=== PATIENT | male | born 1940 | race Caucasian/White ===

== ENCOUNTER 2017-06-19 06:12 | Day surgery (SDC) | payer OTHER ==
[~2017-06-19] VITALS: Ht 182.9 cm; Wt 96.1 kg
[2017-06-19] MEDS ORDERED: TRIA50 PO (06:32)
[2017-06-19] MEDS ORDERED: AMLOATOR (06:32)
[2017-06-19] MEDS ORDERED: IBUP400 PO (06:46)
== END 2017-06-19 11:55 | disposition home or self-care (01) ==
LOC: ORSCSDS 06:12
PROVIDERS: Orthopaedic Surgery
PROC: 0RNK4ZZ Release Left Shoulder Joint, Percutaneous Endoscopic Approach (ICD-10-PCS; principal; 2017-06-19 07:30)
PROC: 0LQ24ZZ Repair Left Shoulder Tendon, Percutaneous Endoscopic Approach (ICD-10-PCS; principal; 2017-06-19 07:30)
PROC: 0LS24ZZ Reposition Left Shoulder Tendon, Percutaneous Endoscopic Approach (ICD-10-PCS; principal; 2017-06-19 07:30)
DX: M75.122 Complete rotator cuff tear or rupture of left shoulder, not specified as traumatic (principal); M75.42 Impingement syndrome of left shoulder; M75.22 Bicipital tendinitis, left shoulder; I10 Essential (primary) hypertension; K21.9 Gastro-esophageal reflux disease without esophagitis; Z79.899 Other long term (current) drug therapy
CPT/HCPCS: C1713; J0171; J0690; J1100; J2250; J2405; J3010; J7120

== ENCOUNTER 2018-09-15 12:16 | Day surgery (SDC) | payer OTHER ==
[~2018-09-15] VITALS: Ht 182.9 cm; Wt 93.8 kg
[~2018-09-15 12:16] MED LIST: AMLOATOR; Amlodipine-Ben1 EACH PO; Cialis5 MG; Dyazide 37.5-21 EACH PO; IBUP400 PO; IBUP800 PO; Prilosec Otc20 MG PO; TRIA50 PO; TUMS500 MG PO
== END 2018-09-15 14:30 | disposition home or self-care (01) ==
LOC: ORSCSDS 12:16
PROVIDERS: Internal Medicine Gastroenterology
PROC: 0DB58ZX Excision of Esophagus, Via Natural or Artificial Opening Endoscopic, Diagnostic (ICD-10-PCS; principal; 2018-09-15 13:30)
DX: K21.9 Gastro-esophageal reflux disease without esophagitis (principal); K44.9 Diaphragmatic hernia without obstruction or gangrene; I10 Essential (primary) hypertension; Z79.899 Other long term (current) drug therapy
CPT/HCPCS: 88305; J2704; J7120

== ENCOUNTER 2019-11-25 07:37 | Day surgery (SDC) | payer OTHER ==
[~2019-11-25] VITALS: Ht 182.9 cm; Wt 95.5 kg
== END 2019-11-25 10:19 | disposition home or self-care (01) ==
LOC: ORSCSDS 07:37
PROVIDERS: Internal Medicine Gastroenterology
PROC: 0DBM8ZX Excision of Descending Colon, Via Natural or Artificial Opening Endoscopic, Diagnostic (ICD-10-PCS; principal; 2019-11-25 09:00)
PROC: 0DBN8ZX Excision of Sigmoid Colon, Via Natural or Artificial Opening Endoscopic, Diagnostic (ICD-10-PCS; principal; 2019-11-25 09:00)
PROC: 0DBH8ZX Excision of Cecum, Via Natural or Artificial Opening Endoscopic, Diagnostic (ICD-10-PCS; principal; 2019-11-25 09:00)
PROC: 0DBP8ZX Excision of Rectum, Via Natural or Artificial Opening Endoscopic, Diagnostic (ICD-10-PCS; principal; 2019-11-25 09:00)
PROC: 0DBC8ZX Excision of Ileocecal Valve, Via Natural or Artificial Opening Endoscopic, Diagnostic (ICD-10-PCS; principal; 2019-11-25 09:00)
PROC: 0DBK8ZX Excision of Ascending Colon, Via Natural or Artificial Opening Endoscopic, Diagnostic (ICD-10-PCS; principal; 2019-11-25 09:00)
DX: Z12.11 Encounter for screening for malignant neoplasm of colon (principal); D12.2 Benign neoplasm of ascending colon; D12.0 Benign neoplasm of cecum; D12.8 Benign neoplasm of rectum; K63.5 Polyp of colon; K57.30 Diverticulosis of large intestine without perforation or abscess without bleeding; I10 Essential (primary) hypertension; Z79.899 Other long term (current) drug therapy
CPT/HCPCS: 88305; J2405; J2704; J7120

== ENCOUNTER 2020-02-15 06:23 | Day surgery (SDC) | payer OTHER ==
[~2020-02-15] VITALS: Ht 182.9 cm; Wt 96.6 kg
[~2020-02-15 06:23] MED LIST changes: +DYAZIDE 37.5-21 EACH PO
--- NOTE | 2020-02-15 08:56 | NUR ---
02/15/20 0856 ROSY SIMON IV TO LEFT HAND DC'D IN OR
== END 2020-02-15 08:50 | disposition home or self-care (01) ==
LOC: ORSCSDS 06:23
PROVIDERS: Orthopaedic Surgery
PROC: 01N50ZZ Release Median Nerve, Open Approach (ICD-10-PCS; principal; 2020-02-15 07:30)
DX: G56.02 Carpal tunnel syndrome, left upper limb (principal); I10 Essential (primary) hypertension; K21.9 Gastro-esophageal reflux disease without esophagitis; Z79.899 Other long term (current) drug therapy
CPT/HCPCS: J0690; J1100; J1885; J2250; J2704; J3010; J7120

== ENCOUNTER 2020-10-07 10:05 | Emergency (ER) | payer OTHER ==
[~2020-10-07] VITALS: Ht 182.9 cm; Wt 95.2 kg
[2020-10-07 10:42] LABS: Source, Urine Clean Catch
[2020-10-07 10:44] LABS: BASOPHILS ABSOLUTE AUTO 0.05 K/mm3 (0.00-0.23); BASOPHILS PERCENT AUTO 1 % (0-2); EOSINOPHILS ABSOLUTE AUTO 0.04 K/mm3 (0.00-0.68); EOSINOPHILS PERCENT AUTO 0 % (0-6); Hematocrit 50.2 % (37.0-53.0); Hemoglobin 16.5 g/dL (13.5-17.5); IMMATURE GRAN ABSOLUTE AUTO 0.04 K/mm3 (0.00-0.10); IMMATURE GRAN PERCENT AUTO 0 % (0-1); LYMPHOCYTES PERCENT AUTO 13 % (21-46); MONOCYTES ABSOLUTE AUTO 0.69 K/mm3 (0.16-1.47); MONOCYTES PERCENT AUTO 6 % (4-13); Mean Corpuscular HGB 29.2 pg (26.0-34.0); Mean Corpuscular HGB Conc 32.9 g/dL (31.5-36.5); Mean Corpuscular Volume 89 fL (80-100); Mean Platelet Volume 9.1 fL (9.1-12.4); NEUTROPHILS ABSOLUTE AUTO 8.73 K/mm3 (1.96-9.15); NEUTROPHILS PERCENT AUTO 80 % (41-73); Platelet Count 193 K/mm3 (150-400); RDW Coefficient Variation 12.1 % (11.7-14.2); RDW Standard Deviation 39.4 fL (35.1-46.3); Red Blood Cell Count 5.65 M/mm3 (4.30-5.90); White Blood Cell Count 10.95 K/mm3 (4.00-11.30)
[2020-10-07 10:52] LABS: Bilirubin, Urine Neg (Neg); Blood, Urine 5+ (Neg); Glucose Qualitative, Urine Neg (Neg); Ketones, Urine Neg (Neg); Leukocyte Esterase, Urine Neg (Neg); Nitrite, Urine Neg (Neg); Protein, Urine Neg (Neg); Urobilinogen, Urine NORM (Normal)
[2020-10-07 10:57] LABS: Alanine Aminotransfer (ALT/SGP 36 U/L (12-78); Albumin/Globulin Ratio 1.1 (0.8-1.8); Alk Phos 87 U/L (50-136); Anion Gap 6 mmol/L (6-16); Aspartate Aminotrans (AST/SGOT 24 U/L (12-37); Bilirubin, Total 0.8 mg/dL (0.1-1.0); Blood Urea Nitrogen 29 mg/dL (8-24); Bun/Creatinine Ratio 24.4 (12.0-20.0); CO2, Blood 26 mmol/L (21-32); Chloride, Blood 106 mmol/L (98-108); Creatinine, Blood 1.19 mg/dL (0.60-1.20); Globulin, Blood 3.5 g/dL (2.2-4.0); Glomerular Filtration Rate >60 (60-); Glucose, Blood 154 mg/dL (70-99); Potassium, Blood 3.9 mmol/L (3.5-5.5); Sodium, Blood 138 mmol/L (136-145); Total Protein, Blood 7.5 g/dL (6.4-8.2)
[2020-10-07 11:00] LABS: Appearance, Urine Hazy (Clear); Color, Urine Yellow (P-Yellow)
[2020-10-07 11:01] LABS: Bacteria Not Seen /hpf; Squamous Epithelial Cells Few /hpf (Few); White Blood Cells, Urine Not Seen /hpf (0-5)
[2020-10-07] MEDS ORDERED: Norco 5-325 Ta1 EACH PO (11:10)
[2020-10-07] MEDS ORDERED: ONDA4ODT MM (11:10)
[2020-10-07] MEDS ORDERED: Flomax0.4 MG PO (11:10)
== END 2020-10-07 11:21 | disposition home or self-care (01) ==
LOC: ER 10:05
PROVIDERS: Emergency Medicine
DX: N13.2 Hydronephrosis with renal and ureteral calculous obstruction (principal); R10.9 Unspecified abdominal pain; Z79.899 Other long term (current) drug therapy
CPT/HCPCS: 36415; 74176; 80053; 81001; 83690; 85025; 96374; 96375; 99284-25; J1885; J2405

== ENCOUNTER 2022-01-02 14:36 | Inpatient (IN) | payer OTHER ==
[~2022-01-02] VITALS: Ht 182.9 cm; Wt 93.2 kg
[~2022-01-02 14:36] MED LIST changes: +Flomax0.4 MG PO; +Norco 5-325 Ta1 EACH PO; +ONDA4ODT MM
[2022-01-02 15:07] LABS: BASOPHILS ABSOLUTE AUTO 0.04 K/mm3 (0.00-0.23); BASOPHILS PERCENT AUTO 1 % (0-2); EOSINOPHILS ABSOLUTE AUTO 0.14 K/mm3 (0.00-0.68); EOSINOPHILS PERCENT AUTO 2 % (0-6); Hematocrit 46.6 % (37.0-53.0); Hemoglobin 15.4 g/dL (13.5-17.5); IMMATURE GRAN ABSOLUTE AUTO 0.03 K/mm3 (0.00-0.10); IMMATURE GRAN PERCENT AUTO 0 % (0-1); LYMPHOCYTES ABSOLUTE AUTO 1.97 K/mm3 (0.84-5.20); LYMPHOCYTES PERCENT AUTO 26 % (21-46); MONOCYTES ABSOLUTE AUTO 0.56 K/mm3 (0.16-1.47); MONOCYTES PERCENT AUTO 7 % (4-13); Mean Corpuscular HGB 28.4 pg (26.0-34.0); Mean Corpuscular Volume 86 fL (80-100); Mean Platelet Volume 8.7 fL (9.1-12.4); NEUTROPHILS ABSOLUTE AUTO 4.85 K/mm3 (1.96-9.15); NEUTROPHILS PERCENT AUTO 64 % (41-73); Platelet Count 230 K/mm3 (150-400); Red Blood Cell Count 5.43 M/mm3 (4.30-5.90); White Blood Cell Count 7.59 K/mm3 (4.00-11.30)
[2022-01-02 15:50] LABS: Albumin, Blood 3.9 g/dL (3.4-5.0); Albumin/Globulin Ratio 1.2 (0.8-1.8); Bilirubin, Total 0.5 mg/dL (0.1-1.0); Bun/Creatinine Ratio 17.2 (12.0-20.0); Calcium, Blood 9.4 mg/dL (8.5-10.1); Creatinine, Blood 0.99 mg/dL (0.60-1.20); Globulin, Blood 3.3 g/dL (2.2-4.0); Potassium, Blood 3.9 mmol/L (3.5-5.5); Total Protein, Blood 7.2 g/dL (6.4-8.2)
[2022-01-02 16:00] LABS: International Normalized Ratio 1.06; Prothrombin Time Results 11.1 Sec (9.7-11.5)
[2022-01-02] MEDS ORDERED: ACET325 PO (17:39)
--- NOTE | 2022-01-02 18:17 | NUR ---
ER ADMIT: PT ARRIVED TO UNIT AT 1745. PT ABLE TO TRANSFER FROM [facility] TO BED IND. ALERT AND ORIENTED X4. BP STABLE. HR SR 70'S. AFEBRILE. PT SATING >96% ON RA. LUNG SOUNDS CLEAR THROUGHOUT. PT REPORTS NO CP OR PRESSURE AT THIS TIME. NS GTT AT 75ML/HR. PT ORIENTED TO ROOM AND CALL LIGHT. AT BEDSIDE. CURRENTLY IN BED EATING DINNER. WILL CONTINUE TO MONITOR AND REPORT TO ONCOMING RN.
[2022-01-03 06:22] LABS: Albumin, Blood 3.2 g/dL (3.4-5.0); Albumin/Globulin Ratio 1.1 (0.8-1.8); Bilirubin, Total 0.5 mg/dL (0.1-1.0); Bun/Creatinine Ratio 20.4 (12.0-20.0); Calcium, Blood 8.2 mg/dL (8.5-10.1); Creatinine, Blood 0.79 mg/dL (0.60-1.20); Total Protein, Blood 6.2 g/dL (6.4-8.2)
[2022-01-03 06:45] LABS: International Normalized Ratio 1.07; Prothrombin Time Results 11.2 Sec (9.7-11.5)
--- NOTE | 2022-01-03 07:25 | NUR ---
RACK PUSHER SUMMARY PT IS ALERT AND COMMUNICATING APPROPRIATELY W STAFF THIS SHIFT. PT HAS DENIED ANY CP OR PRESSURE THIS SHIFT. PT JULIUS TO AMBULATE UNASSISTED DENYING ANY SOB OR PAIN. TELE SHOWING SB/SR 50'S-60'S THIS SHIFT. TROP ELEVATED THIS AM SO PROVIDER CONTACTED AND ORDERS GIVEN. HEPARIN GTT RUNNING. WILL REPORT TO ONCOMING RN.
[2022-01-03 07:54] LABS: BASOPHILS ABSOLUTE AUTO 0.04 K/mm3 (0.00-0.23); BASOPHILS PERCENT AUTO 1 % (0-2); EOSINOPHILS ABSOLUTE AUTO 0.17 K/mm3 (0.00-0.68); EOSINOPHILS PERCENT AUTO 2 % (0-6); Hematocrit 40.6 % (37.0-53.0); Hemoglobin 13.3 g/dL (13.5-17.5); IMMATURE GRAN ABSOLUTE AUTO 0.04 K/mm3 (0.00-0.10); IMMATURE GRAN PERCENT AUTO 1 % (0-1); LYMPHOCYTES ABSOLUTE AUTO 2.38 K/mm3 (0.84-5.20); LYMPHOCYTES PERCENT AUTO 31 % (21-46); MONOCYTES ABSOLUTE AUTO 0.68 K/mm3 (0.16-1.47); MONOCYTES PERCENT AUTO 9 % (4-13); Mean Corpuscular HGB 28.5 pg (26.0-34.0); Mean Corpuscular HGB Conc 32.8 g/dL (31.5-36.5); Mean Corpuscular Volume 87 fL (80-100); Mean Platelet Volume 8.7 fL (9.1-12.4); NEUTROPHILS ABSOLUTE AUTO 4.45 K/mm3 (1.96-9.15); NEUTROPHILS PERCENT AUTO 57 % (41-73); Platelet Count 206 K/mm3 (150-400); RDW Coefficient Variation 13.1 % (11.7-14.2); RDW Standard Deviation 40.9 fL (35.1-46.3); Red Blood Cell Count 4.67 M/mm3 (4.30-5.90); White Blood Cell Count 7.76 K/mm3 (4.00-11.30)
[2022-01-03 08:42] LABS: Creatine Kinase MB 91.8 ng/mL (0.0-3.6); Creatine Kinase MB Index 10.9 (0.0-4.0)
[2022-01-03 10:44] LABS: Creatine Kinase MB 59.4 ng/mL (0.0-3.6); Creatine Kinase MB Index 9.6 (0.0-4.0)
--- NOTE | 2022-01-03 11:43 | NUR ---
Pt. had been taken to the Requirements [facility]. Met with Spouse in the waiting area. Established rapport and was updated on the nature of Pts. hospitalization. I will havasupai back to the Pt. when he goes back to [facility]. Spouse verbalized gratitude for the spiritual care visit.
--- NOTE | 2022-01-03 12:24 | NUR ---
UPDATE PT BACK FROM [facility] WITH TR BAND IN PLACE OVER RIGHT RADIAL ACCESS SITE. TR BAND SECURE WITH 10CC, NO BLEEDING , SWELLING, HEMATOMA, OR REDNESS NOTED AT SITE. PULSES PRESENT ABOVE AND BELOW THE SITE. VSS, KATELYNN UPON ARRIVAL
--- NOTE | 2022-01-03 13:12 | NUR ---
UPDATE ASSESSED TR BAND, SITE IS FREE OF HEMATOMA, BLEEDING, REDNESS OR SWELLING. PULSES PALAPATED ABOVE AND BELOW THE SITE, HAND WARM TO THE TOUCH. NO DRECREASE IN SENSATION REPROTED BY PT. WILL CONTINUE TO MONITOR
--- NOTE | 2022-01-03 13:46 | NUR ---
Pt. is awake in bed and welcomes my visit. Spouse is present, and Pt. is pleasant. 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 Pt. verbalized his diagnosis and plan of care, which is anticipated to include a transfer to a hospital for surgery. Pt. welcomed spiritual care and I Prayed with Pt. and spouse. Both Pt. and Spouse verbalized gratitude for the spiritual care visit.
--- NOTE | 2022-01-03 13:58 | NUR ---
3 cc air removed from the TR band. Right radial site is without bleeding, swelling, bruising, not tenderness. Cap refill is less than 3 seconds. spo2 measured on the right hand is 98%. Ambulatory to the bathroom to void. No chest discomfort, no diaphoresis, no dyspnea.
--- NOTE | 2022-01-03 15:15 | NUR ---
TR band is fully deflated at this time. Pt has signed consent form for [facility] transfer. Waiting on word for the bed. is at the bedside.
--- NOTE | 2022-01-03 15:19 | NUR ---
HEPARIN gtt restarted at this time.
--- NOTE | 2022-01-03 16:45 | NUR ---
TRANSFER NOTE CALLED REPORT TO NURSE AT [facility]. ALL QUESTIONS ABOUT PT WERE ANSWERED. PT AND SPOUSE WELL INFORMED OF PLAN OF CARE/TRANSFER OF CARE, ALL OF THEIR QUESTIONS WERE ANSWERED. HEPARIN RATE CONFIRMED WITH TRANSPORT TEAM AND OTHER NURSING STAFF GUSTAVO BERGER UPON TRANSFER
--- NOTE | 2022-01-03 17:25 | NUR ---
EMS arrived to transport the pt. to [facility] in [place]. Pt transferred to the stretcher, white immobilizer board in place on the right wrist. TR band was removed one hour earilier, area cleansed with chloroprep and a sterile tegederm dressing applied. Heparin gtt infusing. Bedside report given to mining consultant and EMT. Pt's at the bedside. Pt was taken by EMS.
== END 2022-01-03 17:21 | disposition short-term general hospital (02) | DRG 282 ==
LOC: ER 14:36 → PCU 14:37
PROVIDERS: Physician Assistant; ADMIT Internal Medicine
PROC: 4A023N7 Measurement of Cardiac Sampling and Pressure, Left Heart, Percutaneous Approach (ICD-10-PCS; principal; 2022-01-03)
PROC: B2111ZZ Fluoroscopy of Multiple Coronary Arteries using Low Osmolar Contrast (ICD-10-PCS; 2022-01-03)
DX: I21.4 Non-ST elevation (NSTEMI) myocardial infarction (principal); I10 Essential (primary) hypertension; K21.9 Gastro-esophageal reflux disease without esophagitis; I25.10 Atherosclerotic heart disease of native coronary artery without angina pectoris; B02.9 Zoster without complications; Z96.641 Presence of right artificial hip joint; Z79.891 Long term (current) use of opiate analgesic; Z98.890 Other specified postprocedural states; Z79.899 Other long term (current) drug therapy
CPT/HCPCS: 36415; 71045; 76937; 80053; 82550; 82553; 83690; 83880; 84484; 85025; 85379; 85610; 85730; 93005; 93010; 93306; 93454; 96374; 99152; 99153; 99285-25; A9270; C1769; C1887; C1894; C9113; J1644; J1650; J2250; J3010; J7030; J7040; Q9967

== ENCOUNTER → 2024-10-27 | Outpatient (CLI) | payer OTHER ==
[~2024-10-27] MED LIST changes: +ACET325 PO
[2024-10-27 12:20] LABS: Source, Urine Clean Catch
[2024-10-27 13:25] LABS: Bilirubin, Urine Neg (Neg); Color, Urine Yellow (P-Yellow); Glucose Qualitative, Urine Neg (Neg); Ketones, Urine Neg (Neg); Leukocyte Esterase, Urine 2+ (Neg); Protein, Urine 2+ (Neg); Specific Gravity, Urine 1.020 (1.003-1.022); Urobilinogen, Urine 1+ (Normal)
[2024-10-27 13:43] LABS: Red Blood Cells, Urine 25-50 /hpf (0-2); White Blood Cells, Urine 50-100 /hpf (0-5)
== END | disposition home or self-care (01) ==
LOC: LAB SHORT 12:18 → LAB 12:18
PROVIDERS: Internal Medicine
DX: N39.0 Urinary tract infection, site not specified (principal); R31.9 Hematuria, unspecified
CPT/HCPCS: 81001; 87077; 87086; 87186

== ENCOUNTER → 2024-11-10 | Outpatient (CLI) | payer OTHER ==
[2024-11-10 15:30] LABS: Source, Urine Clean Catch
[2024-11-10 17:45] LABS: Bilirubin, Urine Neg (Neg); Color, Urine Yellow (P-Yellow); Glucose Qualitative, Urine Neg (Neg); Ketones, Urine Neg (Neg); Leukocyte Esterase, Urine Neg (Neg); Protein, Urine 1+ (Neg); Specific Gravity, Urine 1.020 (1.003-1.022); Urobilinogen, Urine NORM (Normal)
[2024-11-10 18:19] LABS: White Blood Cells, Urine 0-2 /hpf (0-5)
== END ==
LOC: LAB SHORT 15:29 → LAB 15:29
PROVIDERS: Internal Medicine
DX: N39.0 Urinary tract infection, site not specified (principal)
CPT/HCPCS: 81001

== ENCOUNTER → 2024-11-26 | Outpatient (CLI) | payer OTHER ==
[2024-11-26 08:13] LABS: Source, Urine Clean Catch
[2024-11-26 09:39] LABS: Bilirubin, Urine Neg (Neg); Color, Urine Yellow (P-Yellow); Glucose Qualitative, Urine Neg (Neg); Ketones, Urine Neg (Neg); Leukocyte Esterase, Urine Neg (Neg); Protein, Urine 1+ (Neg); Specific Gravity, Urine 1.015 (1.003-1.022); Urobilinogen, Urine NORM (Normal)
[2024-11-26 09:47] LABS: White Blood Cells, Urine 0-2 /hpf (0-5)
== END ==
LOC: LAB SHORT 08:11 → LAB 08:11
PROVIDERS: Internal Medicine
DX: N39.0 Urinary tract infection, site not specified (principal)
CPT/HCPCS: 81001